=== PATIENT | female | born 1985 | race Hispanic/Latino ===

== ENCOUNTER 2019-07-07 11:34 | Outpatient (CLI) | payer BC ==
--- NOTE | 2019-07-07 13:36 | MRI ---
MRI ABDOMEN WITH AND WITHOUT CONTRAST: HISTORY: Terminal ileum ulcers. COMPARISON: None. TECHNIQUE: Multiplanar, multisequence MR images were obtained of the abdomen and pelvis with and without IV cont rast. Negative contrast agents were given with Volumen. FINDINGS: There is a well circumscribed focus of high T2 signal in the right lobe of the liver, measuring 1.1 c m in size. This appears to demonstrate enhancement and likely represents a small hemangioma. The gall bladder, kidneys, adrenal glands, spleen and pancreas are unremarkable. The small bowel is normal in caliber without significant thickening of the kim of the colon or the small bowel and without significant enhancement in the kim of the colon or small bowel. The reproductive organs are unremarkable. No lymphadenopathy is appreciated. IMPRESSION: No significant abnormality. POS: C
== END 2019-07-07 11:35 | disposition home or self-care (01) ==
LOC: MRI 11:34
PROVIDERS: ATTEND Internal Medicine Gastroenterology
DX: K63.3 Ulcer of intestine (principal); R63.4 Abnormal weight loss; R10.13 Epigastric pain
CPT/HCPCS: 74183; J1610

== ENCOUNTER 2020-01-14 11:06 | Outpatient (CLI) | payer BC ==
--- NOTE | 2020-01-14 11:55 | ULT ---
US Gallbladder RUQ History: Right upper quadrant pain Comparison: Reference is made to MRI from 2019 Findings: Real-time grayscale and color evaluation right upper quadrant of the abdomen was performed. Visualized portion of the aorta, IVC and pancreas are unremarkable. Hepatic echotexture appears roro l. In the posterior aspect right lobe of the liver is a 1.3 cm hypoechoic mass corresponding to the denita ngioma seen on prior MRI. No other hepatic mass. Portal vein is patent with antegrade flow. The gallbladder is normal. No cholelithiasis. No intrahepatic or extrahepatic biliary dilatation. Common bile duct measures 3 mm. Right kidney measures 8.7 x 4.3 x 4.9 cm without mass, hydronephrosis or abnormal calcifications. Impression: 1. Unchanged hepatic benign hemangioma. 2. No cholelithiasis or cholecystitis.
== END 2020-01-14 11:07 | disposition home or self-care (01) ==
LOC: SCSULT 11:06
PROVIDERS: ATTEND Internal Medicine Gastroenterology
DX: R10.11 Right upper quadrant pain (principal); K50.00 Crohn's disease of small intestine without complications; D18.03 Hemangioma of intra-abdominal structures
CPT/HCPCS: 76705

== ENCOUNTER 2025-03-29 08:45 | Outpatient (CLI) | payer BC | END 2025-03-29 08:46 | disposition home or self-care (01) | LOC: BICULT 08:45 | PROVIDERS: ATTEND Internal Medicine Gastroenterology | DX: R10.11 Right upper quadrant pain (principal); R79.89 Other specified abnormal findings of blood chemistry; D18.03 Hemangioma of intra-abdominal structures | CPT/HCPCS: 76705 ==